=== PATIENT | female | born 1990 | race Caucasian/White ===

== ENCOUNTER 2021-03-10 14:30 | Emergency (ER) | payer SELFPAY ==
[~2021-03-10] VITALS: Ht 160 cm; Wt 79.0 kg
[2021-03-10 14:34] VITALS: BP 129/64
== END 2021-03-10 20:36 | disposition left against medical advice (07) ==
LOC: ER 14:30
DX: Z53.21 Procedure and treatment not carried out due to patient leaving prior to being seen by health care provider (principal)